=== PATIENT | female | born 1980 | race Caucasian/White ===

== ENCOUNTER 2021-04-12 20:49 | Emergency (ER) | payer OTHER | END 2021-04-13 00:45 | disposition home or self-care (01) | LOC: ER 21:20 | DX: M25.562 Pain in left knee (principal); S80.02XA Contusion of left knee, initial encounter; W22.09XA Striking against other stationary object, initial encounter; M32.9 Systemic lupus erythematosus, unspecified; Z98.84 Bariatric surgery status | CPT/HCPCS: 99283 ==